=== PATIENT | male | born 1995 ===

== ENCOUNTER 2021-02-11 10:53 | Emergency (ER) | payer SELFPAY ==
--- NOTE | 2021-02-11 13:04 | EDM.PDOC ---
ED HPI GENERAL MEDICAL PROBLEM - General Chief Complaint: Abdominal Pain Stated Complaint: STOMACH PAIN Time Seen by Provider: 02/11/21 12:00 Source of Information: Reports: Patient, RN Notes Reviewed History Limitations: Reports: No Limitations - History of Present Illness INITIAL COMMENTS - FREE TEXT/NARRATIVE: This patient presents to the emergency department for evaluation of abdominal pain. He states the pain began last night while he was. He states it is sometimes on the right side and sometimes "all over his abdomen." He denies any diarrhea but has had a couple of vomiting episodes since the pain began. He has not had a fever. He denies headache, chest pain, dysuria. Right Abdomen Pain Score (Numeric/FACES): 6 - Related Data Allergies Allergy/AdvReac Type Severity Reaction Status Date / Time No Known Allergies Allergy Verified 02/11/21 12:02 Home Meds: Home Meds NK [No Known Home Meds] 02/11/21 [History] Past Medical History - Past Health History Medical/Surgical History: Denies Medical/Surgical History ED ROS GENERAL - Review of Systems Review Of Systems: Comprehensive ROS is negative, except as noted in HPI. ED EXAM, GI/ABD - Physical Exam Exam: See Below Exam Limited By: No Limitations General Appearance: Alert, No Apparent Distress Eyes: Bilateral: Normal Appearance Ears: Normal External Exam Nose: Normal Inspection Head: Atraumatic, Normocephalic Neck: Normal Inspection, Supple, Full Range of Motion Respiratory/Chest: No Respiratory Distress, Lungs Clear, Normal Breath Sounds, No Accessory Muscle Use Cardiovascular: Regular Rate, Rhythm GI/Abdominal Exam: Normal Bowel Sounds, Soft, Non-Tender, No Organomegaly, No Distention Course - Vital Signs Last Recorded V/S: Last Vital Signs Temp 36.6 C 02/11/21 12:04 Pulse 64 02/11/21 12:04 Resp 18 02/11/21 12:04 BP 115/77 02/11/21 12:04 Pulse Ox 97 02/11/21 12:04 - Orders/Labs/Meds Orders: Active Orders 24 hr Category Date Time Status Abdomen Pelvis wo Cont [CT] Stat Exams 02/11/21 11:56 Taken Labs: Laboratory Tests 02/11/21 02/11/21 Range/Units 12:05 12:05 WBC 4.4 (4.0-11.0) K/uL RBC 5.66 (4.50-6.50) M/uL Hgb 16.4 (13.0-18.0) g/dL Hct 47.2 (40.0-54.0) % MCV 83 (76-96) fL MCH 29.0 (27.0-32.0) pg MCHC 34.7 (31.0-35.0) g/dL RDW 12.7 (11.0-16.0) % Plt Count 267 (150-400) K/uL MPV 10.1 H (6.0-10.0) fL Neut % (Auto) 52.1 (45.0-70.0) % Lymph % (Auto) 36.6 (20.0-40.0) % Stanton % (Auto) 8.3 (3.0-10.0) % Eos % (Auto) 2.1 (1.0-5.0) % Baso % (Auto) 0.9 H (0.0-0.5) % Neut # (Auto) 2.27 (2.00-7.50) K/uL Lymph # (Auto) 1.59 (1.50-4.00) K/uL Stanton # (Auto) 0.36 (0.20-0.80) K/uL Eos # (Auto) 0.09 (0.04-0.40) K/uL Baso # (Auto) 0.04 (0.02-0.10) K/uL Sodium 142 (136-145) mmol/L Potassium 4.2 (3.5-5.1) mmol/L Chloride 105 (98-107) mmol/L Carbon Dioxide 30.9 (21.0-32.0) mmol/L Anion Gap 10.3 (5.0-15.0) mmol/L BUN 12 (8-26) mg/dL Creatinine 1.02 (0.70-1.30) mg/dL Est Cr Clr Drug Dosing 98.17 mL/min Estimated GFR (MDRD) > 60 (>60) MLS/MIN BUN/Creatinine Ratio 11.8 (6-25) Glucose 95 (74-100) mg/dL Calcium 9.0 (8.5-10.1) mg/dL - Re-Assessments/Exams Free Text/Narrative Re-Assessment/Exam: This patient presents to the emergency department for evaluation of abdominal pain. He states he has had a normal stool as recently as yesterday however history and clinical findings are most consistent with constipation. CT scan does reveal stool throughout the entire colon. There are no signs at this point for need for rectal disimpaction. There are no signs of obstruction or other intra-abdominal catastrophe. There are no electrolyte abnormalities or concerning findings on basic lab work. There are no indications for admission to the hospital. He was instructed to go to the pharmacy and purchase a laxative to use, increase his oral fluid intake, increase intake of fruits and vegetables. Questions were answered and patient was stable at the time of discharge. 02/11/21 13:18 Departure - Departure Time of Disposition: 13:15 Disposition: Home, Self-Care 01 Condition: Good Clinical Impression: Constipation - Discharge Information Instructions: Constipation, Adult, [id number] Referrals: PCP,None [Primary Care Provider] - Forms: ED Department Discharge Additional Instructions: Go to the pharmacy and purchase a laxative to use. Drink more water every day; eat more foods with fiber like fruit and vegtables. Sepsis Event Note (ED) - Evaluation Sepsis Screening Result: No Definite Risk - Focused Exam Vital Signs: Vital Signs Temp Pulse Resp BP Pulse Ox 02/11/21 12:04 36.6 C 64 18 115/77 97 - My Orders Last 24 Hours: My Active Orders 02/11/21 11:56 Abdomen Pelvis wo Cont [CT] Stat - Assessment/Plan Last 24 Hours: My Active Orders 02/11/21 11:56 Abdomen Pelvis wo Cont [CT] Stat
--- NOTE | 2021-02-11 20:25 | CT ---
Date of Service: 02/11/21 Clinical Data: abd pain UNENHANCED ABDOMEN AND PELVIC CT: Multislice axial acquisition without IV or oral contrast was performed. No priors. The lung bases are clear. The heart size is normal. The unenhanced liver appears normal. The gallbladder appears normal. The spleen appears normal. The pancreas appears normal. The right and left adrenals appear normal. The right and left kidneys appear normal. No nephrocalcinosis or nephrolithiasis. No hydronephrosis or hydroureter. The bladder is fluid filled. It appears normal. The appendix is not dilated. No evidence of appendicitis. There is diffuse gastric wall thickening. This is probably related to nondistention. Gastritis should be considered. There is a moderate amount of stool present throughout the colon and rectum. No free air. No free fluid. No dilated loops of bowel. No adenopathy. No aortic aneurysm. No osseous abnormalities. [id number] MTDD
== END 2021-02-11 12:30 | disposition home or self-care (01) ==
LOC: LB.ED 10:53
DX: K59.00 Constipation, unspecified (principal)
CPT/HCPCS: 36415; 74176; 80048; 85025; 99284-25